=== PATIENT | male | born 1990 | race Caucasian/White ===

== ENCOUNTER 2018-10-30 15:24 | Emergency (ER) | payer SELFPAY ==
[2018-10-30 15:44] VITALS: BP 153/100
[2018-10-30] MEDS ORDERED: HYDROmorphone 1 MG/ML Syringe IM ONE (15:55)
--- NOTE | 2018-10-30 16:04 | EDM.PDOC ---
ED HPI GENERAL MEDICAL PROBLEM - General Chief Complaint: Upper Extremity Injury/Pain Stated Complaint: COLLAR BONE, SHOULDER Time Seen by Provider: 10/30/18 15:45 Source of Information: Reports: Patient, Family, RN Notes Reviewed History Limitations: Reports: No Limitations - History of Present Illness INITIAL COMMENTS - FREE TEXT/NARRATIVE: Patient is a 28 year old male who presents to the ED with his significant other for the evaluation of left collar bone/shoulder pain after a snowboarding accident. He states that he was snowboarding behind a [employer], a practice which he states he does "a lot", when he took a tumble. He thinks that the [employer]- darby was traveling around 15mph. He was not wearing a helmet at this time and denies any LOC or head trauma. He states that he fell directly onto his his left shoulder. He notes that he heard a popping sound and felt pain in the left shoulder right away after the accident. He states it is painful to move his arm , and characterizes this as a sharp stabbing type of pain. He would rate his pain at a 6/10 right now. He denies any numbness/tingling, previous injury to the left shoulder, chest pain or shortness of breath. He admits only to the left collar bone/shoulder pain with pain radiating down the left arm if he moves his arm too much. He did not take anything for pain relief, nor did he ice the area, as the accident happened directly [employer] to ED. He denies any medication allergies. Left Shoulder Pain Score (Numeric/FACES): 6 - Related Data Allergies Allergy/AdvReac Type Severity Reaction Status Date / Time No Known Allergies Allergy Verified 10/30/18 15:38 Home Meds: Home Meds Acetaminophen/HYDROcodone [[place] 325-5 MG] 1 tab PO Q6H PRN #28 tablet 10/30/18 [Rx] Orphenadrine [Norflex] 100 mg PO BID PRN #20 tab 10/30/18 [Rx] Past Medical History - Past Health History Medical/Surgical History: Denies Medical/Surgical History - Past Surgical History Other Musculoskeletal Surgeries/Procedures:: previous left shoulder injury Social & Family History - Tobacco Use Smoking Status *Q: Never Smoker Second Hand Smoke Exposure: No - Caffeine Use Caffeine Use: Reports: None - Recreational Drug Use Recreational Drug Use: No Review of Systems - Review of Systems Review Of Systems: See Below Constitutional: Reports: No Symptoms Eyes: Reports: No Symptoms Ears: Reports: No Symptoms Nose: Reports: No Symptoms Mouth/Throat: Reports: No Symptoms Respiratory: Reports: No Symptoms Cardiovascular: Reports: No Symptoms GI/Abdominal: Reports: No Symptoms Genitourinary: Reports: No Symptoms Musculoskeletal: Reports: Shoulder Pain (left), Arm Pain (left). Denies: Neck Pain, Hand Pain, Joint Swelling Skin: Denies: Cyanosis, Mottled, Pallor Neurological: Denies: Headache, Numbness, Tingling, Weakness Psychiatric: Reports: No Symptoms ED EXAM, GENERAL - Physical Exam Exam: See Below Exam Limited By: No Limitations General Appearance: Alert, WD/WN, Mild Distress (pt appears to be in a moderate amount of pain, he has his left arm pinned against body at initial eval) Eye Exam: Bilateral Eye: Normal Inspection Ears: Normal External Exam Nose: Normal Inspection, Normal Mucosa, No Blood Throat/Mouth: Normal Inspection, Normal Oropharynx, No Airway Compromise Head: Atraumatic, Normocephalic Neck: Normal Inspection, Supple, Non-Tender, Full Range of Motion Respiratory/Chest: No Respiratory Distress, Lungs Clear, Normal Breath Sounds, No Accessory Muscle Use, Chest Non-Tender Cardiovascular: Normal Peripheral Pulses, Regular Rate, Rhythm, No Murmur GI/Abdominal: Normal Bowel Sounds, Soft, Non-Tender, No Distention Extremities: Normal Inspection, Normal Capillary Refill, Limited Range of Motion (obvious deformity noted to left clavicle/shoulder area. It is painful to move even the slightest amount.). No: Mottled, Pallor Neurological: Alert, Oriented, Normal Cognition, Normal Reflexes, No Motor/ Sensory Deficits Psychiatric: Normal Affect, Normal Mood Skin Exam: Warm, Dry, Intact, Normal Color, No Rash Course - Vital Signs Last Recorded V/S: Last Vital Signs Temp 99.5 F 10/30/18 15:39 Pulse 87 10/30/18 15:39 Resp 14 10/30/18 15:39 BP 153/100 H 10/30/18 15:39 Pulse Ox 100 10/30/18 15:39 - Orders/Labs/Meds Meds: Medications Discontinued Medications Generic Name Dose Route Start Last Admin Trade Name Freq PRN Reason Stop Dose Admin Hydromorphone HCl 1 mg 10/30/18 15:55 10/30/18 16:04 Dilaudid IM 10/30/18 15:56 1 mg ONETIME ONE Administration - Re-Assessments/Exams Free Text/Narrative Re-Assessment/Exam: 10/30/18 16:08 Pt presents to the ED for the evaluation of left collar bone/shoulder pain s/p snowboarding accident. I have ordered 1mg IM Dilaudid for pain relief, and left clavicle and shoulder x-rays for initial evaluation. 10/30/18 16:38 X-rays are done and demonstrate an obvious closed, left midshaft clavicle fracture. This appears non-displaced to my discretion, although the official radiology read is not done yet. X-ray was also reviewed with Dr. Dalton. He has been fitted with a figure 8 sling and the significant other was shown how to place and tighten this sling. He will be provided with arm sling as well if the figure 8 is too bothersome. Discharge instructions as documented. 10/31/18 10:45 Official radiologist read today at 9:[address] Fernández states a slightly displaced scapular fracture, Scapular lesion measuring 2.4cm. This has mildly aggressive appearance with cortical thinning but is most likely benign. Orthopedic referral is suggested. I did call the patient and made him aware of this. He will call Orthopedics for follow up. Departure - Departure Time of Disposition: 16:47 Disposition: Home, Self-Care 01 Condition: Fair Clinical Impression: Closed fracture of clavicle Qualifiers: Encounter type: initial encounter Clavicle location: shaft Fracture alignment: nondisplaced Laterality: left Qualified Code(s): S42.025A - Nondisplaced fracture of shaft of left clavicle, initial encounter for closed fracture - Discharge Information *PRESCRIPTION DRUG MONITORING PROGRAM REVIEWED*: No *COPY OF PRESCRIPTION DRUG MONITORING REPORT IN PATIENT ADAL: No Prescriptions: Acetaminophen/HYDROcodone [[place] 325-5 MG] 1 tab PO Q6H PRN #28 tablet PRN Reason: Pain Orphenadrine [Norflex] 100 mg PO BID PRN #20 tab PRN Reason: Spasms Instructions: Clavicle Fracture, [id number], How to Use a Sling, [id number] , Clavicle Fracture (Shaft) With [facility] Referrals: PCP,None [Primary Care Provider] - Forms: ED Department Discharge Additional Instructions: You have been evaluated in the ED for your left clavicle/shoulder pain. Your x-ray demonstrated that you have fractured the middle part of your left collarbone (clavicle). Please use ice as tolerated to the affected area. Recommend every 2-3 hours while awake for 20-30min duration. Please do so for the first 48-72 hours. You may take Tylenol 500 mg or ibuprofen 600mg q6 hours for pain relief. Please do so until you have a tolerable level of pain with activity. Do not exceed 4000mg Tylenol in one day. Do not exceed 3200mg ibuprofen in one day. Please use the hydrocodone/Tylenol every 6 hours as needed for pain relief not attained with ibuprofen or Tylenol alone. Please use the Norflex (muscle relaxer) twice daily as needed for muscle spasms. Please follow up with orthopedics in the next week or two. [phone] (Dr. Stone), or [phone] (Dr. Crowley). This fracture may take anywhere from 6-12 weeks to heal fully. It is unclear at this ED visit as to whether this may need surgical fixation, this is why we recommend that you follow up with orthopedics closely. Please return to ED if your symptoms should change or worsen.
--- NOTE | 2018-10-31 10:07 | CR ---
Left shoulder: Four views of the left shoulder were obtained. Comparison: No prior shoulder study, study correlated with clavicle exam performed on the same day. Mid left clavicle fracture is again noted. Acromioclavicular and glenohumeral joints appear unremarkable. Bony lesion noted within the scapula measuring about 2.4 cm in size causing some cortical thinning. This appears to have small amount of chondroid matrix. Margins of this appear to be well defined. Impression: 1. Slightly displaced scapular fracture. 2. Scapular lesion measuring 2.4 cm. This has a mildly aggressive appearance with cortical thinning but is still most likely benign. Orthopedic referral is suggested. Diagnostic code #9
--- NOTE | 2018-10-31 10:08 | CR ---
Left clavicle: Two views of the left clavicle were obtained. Comparison: No prior clavicle study. Minimally displaced mid left clavicle fracture is seen. No additional fracture or other bony abnormality is seen. Impression: 1. Left clavicle fracture as noted above. Diagnostic code #3
== END 2018-10-30 16:55 | disposition home or self-care (01) ==
LOC: JD.ED 15:24
DX: S42.025A Nondisplaced fracture of shaft of left clavicle, initial encounter for closed fracture (principal); V00.311A Fall from snowboard, initial encounter
CPT/HCPCS: 73000; 73030; 96372; 99283; J1170

== ENCOUNTER 2025-06-09 11:50 | Emergency (ER) | payer SELFPAY ==
[2025-06-09] MEDS: Sodium Chloride 0.9% 10 ML Syringe FLUSH PRN (12:52)
[2025-06-09] MEDS: Ondansetron 4 MG/2 ML SDV IVPUSH ONE (12:52)
[2025-06-09 13:10] LABS: MEAN PLATELET VOLUME 10.2 fl (9.4-12.4); NRBC ABSOLUTE 0.00 (0.00-0.02); NRBC PERCENT 0.0 % (0.0-0.2); PLATELET COUNT,PLT 235 K/mm3 (150-400); RED BLOOD CELL COUNT 4.79 M/mm3 (4.52-5.90); WHITE BLOOD CELL COUNT,WBC 18.28 K/mm3 (3.9-11.3)
[2025-06-09 13:15] LABS: INR 1.12
[2025-06-09 13:22] LABS: A/G RATIO 0.7 (1-2); ALANINE AMINOTRANSFERASE,ALT 23 U/L (16-63); ASPARTATE AMNIOTRANSFERASE,AST 14 U/L (15-37); BILIRUBIN TOTAL 0.9 mg/dL (0.2-1.0); BLOOD UREA NITROGEN,BUN 21 mg/dL (7-18); CARBON DIOXIDE,CO2 27 mEq/L (21-32); CHLORIDE,CL 95 mEq/L (98-107); CREATININE 1.2 mg/dL (0.7-1.3); EST CRCL DRUG DOSING (CG) 85.17 mL/min; ESTIMATED GFR 80 mL/min (>60); GLUCOSE RANDOM 116 mg/dL (70-99); POTASSIUM,K 3.7 mEq/L (3.5-5.1); PROTEIN TOTAL,TP 7.4 g/dl (6.4-8.2); SODIUM,NA 131 mEq/L (136-145)
[2025-06-09 13:22] LABS: LACTIC ACID 1.6 mmol/L (0.4-2.0)
[2025-06-09 13:31] LABS: TROPONIN I HIGH SENSITIVITY < 4 pg/mL (<=76)
[2025-06-09 13:52] LABS: BAND PERCENT MAN 13 % (0-10); BASOPHILS PERCENT MAN 0 (0.2-1.2); EOSINOPHILS PERCENT MAN 0 % (0.8-7.0); LYMPHOCYTES % ATYPICAL MANUAL 0 %; LYMPHOCYTES PERCENT MAN 1 % (20-40); METAMYELOCYTE PERCENT MAN 5; MONOCYTES PERCENT MAN 3 % (2-10)
[2025-06-09 13:53] LABS: PLATELET COUNT ESTIMATE ADEQUATE
[2025-06-09 15:05] VITALS: BP 128/69; PULSE 130
== END 2025-06-09 14:30 | disposition home or self-care (01) ==
LOC: JD.ED 11:50
DX: J18.9 Pneumonia, unspecified organism (principal); F17.200 Nicotine dependence, unspecified, uncomplicated
CPT/HCPCS: 36415; 71045; 80053; 83605; 84484; 85007; 85027; 85610; 86140; 87040; 87428; 93005; 94640; 96361; 96365; 96375; 99285; J2405; J2543; J7030; J7620; A9270-GY